=== PATIENT | female | born 1960 | race Hispanic/Latino ===

== ENCOUNTER 2017-09-12 06:38 | Day surgery (SDC) | payer OTHER ==
[~2017-09-12] VITALS: Ht 157.5 cm; Wt 110.9 kg
[~2017-09-12 06:38] MED LIST: LEVO25TA54 PO; TRAM50TA4 PO
[2017-09-12 07:16] VITALS: BP 135/79
[2017-09-12] MEDS ORDERED: SODIUM CHLORIDE 0.9% 1000ML 1,000 ML IV ONE (07:35)
[2017-09-12 08:25] VITALS: BP 106/55
[2017-09-12 08:50] VITALS: BP 119/78
== END 2017-09-12 08:50 | disposition home or self-care (01) ==
LOC: DAH 06:38 → SUH 06:38
PROVIDERS: ATTEND Internal Medicine
DX: D12.3 Benign neoplasm of transverse colon (principal); K63.5 Polyp of colon; D12.4 Benign neoplasm of descending colon; K62.1 Rectal polyp; E03.9 Hypothyroidism, unspecified; E66.9 Obesity, unspecified; Z68.42 Body mass index [BMI] 45.0-49.9, adult; Z79.899 Other long term (current) drug therapy; Z98.890 Other specified postprocedural states; Z88.8 Allergy status to other drugs, medicaments and biological substances; K57.30 Diverticulosis of large intestine without perforation or abscess without bleeding
CPT/HCPCS: 45380; 45385; 88305; A4606; J7030

== ENCOUNTER → 2023-09-01 | Outpatient (CLI) | payer BC, OTHER ==
[2023-09-01 18:51] LABS: BODY FLUID RBC 14467 /cu. mm.; BODY FLUID WBC 0 /cu. mm.
[2023-09-01 18:52] LABS: SPECIMENTYPE,BODY FLUID SYNOVIAL
[2023-09-01 18:53] LABS: APPEARANCE BODY FLUID TURBID (CLEAR); COLOR,BODY FLUID PINK (LT YELLOW); TOTAL VOLUME,BODY FLUID 4 mL
== END | disposition home or self-care (01) ==
LOC: RAH 16:56
PROVIDERS: ATTEND Student in an Organized Health Care Education/Training Program
DX: T84.84XA Pain due to internal orthopedic prosthetic devices, implants and grafts, initial encounter (principal); M25.461 Effusion, right knee; Y92.89 Other specified places as the place of occurrence of the external cause
CPT/HCPCS: 87071; 87076; 87205; 89051

== ENCOUNTER → 2024-04-28 | Outpatient (CLI) | payer BC, OTHER ==
--- NOTE | 2024-04-28 22:53 | HMCIMG ---
NM BONE SCAN 3 PHASE REASON: painful orthopedic hardware. COMPARISON: None TECHNIQUE: 3 phase bone scan was obtained. Patient was given 24 mCi of technetium MDP through intravenous route. FINDINGS: Patient is status post total right knee replacement. Degenerative changes are seen. Slight increase activity is seen of the right knee with increased adjacent soft tissue on the dynamic and static images. Findings are suggestive of soft tissue inflammatory process. Clinical correlation is recommended.. No scintigraphic evidence of bone metastases is seen. IMPRESSION: Findings at described above.
== END | disposition home or self-care (01) ==
LOC: RAH 12:50
PROVIDERS: ATTEND Student in an Organized Health Care Education/Training Program
DX: T84.84XA Pain due to internal orthopedic prosthetic devices, implants and grafts, initial encounter (principal); M62.81 Muscle weakness (generalized); M17.11 Unilateral primary osteoarthritis, right knee; Z96.651 Presence of right artificial knee joint; Y92.89 Other specified places as the place of occurrence of the external cause
CPT/HCPCS: 78315; A9503